=== PATIENT | male | born 1940 | race Caucasian/White ===

== ENCOUNTER 2017-05-09 11:03 | Emergency (ER) | payer MEDICARE ==
[~2017-05-09] VITALS: Ht 182.9 cm; Wt 68.2 kg
[~2017-05-09 11:03] MED LIST: ASPI81TA82 PO; ATOR40TA49 PO; BETH25TA PO; CLOP75 PO; FISH1000 PO; GLUCCAP PO; METO25 PO; OMEP20TA PO; PIRO-1 PO; VITATAB PO
[2017-05-09 11:05] VITALS: BP 147/78; PULSE 82; RESP 14; TEMP 98.4; O2SAT 96
[2017-05-09] MEDS ORDERED: MEGE20TA PO (12:48)
[2017-05-09] MEDS ORDERED: GALA8TAB PO (12:48)
[2017-05-09] MEDS ORDERED: OXYB5TAB8 PO (12:48)
[2017-05-09] MEDS ORDERED: VITA10002 PO (12:48)
[2017-05-09] MEDS ORDERED: PIRO20CA PO (12:59)
[2017-05-09] MEDS ORDERED: METO25TA3 PO (12:59)
[2017-05-09] MEDS ORDERED: OMEGCAP PO (12:59)
[2017-05-09] MEDS ORDERED: LIPI40TA PO (12:59)
[2017-05-09] MEDS ORDERED: BETH25TA2 PO (12:59)
[2017-05-09] MEDS ORDERED: PLAV75TA29 PO (12:59)
[2017-05-09] MEDS ORDERED: ASPI-516 CHEW (12:59)
[2017-05-09] MEDS ORDERED: GLUC500T4 PO (12:59)
[2017-05-09] MEDS ORDERED: OMEP20TA93 PO (12:59)
[2017-05-09] MEDS ORDERED: IBUPROFEN 600 MG TAB PO ONE (13:00)
--- NOTE | 2017-05-09 13:06 | PD ---
HPI Chief Complaint: Back/ Neck Pain or Injury Time Seen by Provider: 12:12 Travel History International Travel<30 days: No Contact w/Intl Traveler<30days: No Traveled to known affect area: No History of Present Illness HPI 76-year-old male presents to emergency Department with complaint of right hip pain 4 days. Pain radiates down his right leg. Denies injury or fall. Denies fevers, vomiting. Denies paresthesias, loss of sensation, decreased range of motion, decreased strength to the affected extremity. Denies change in ambulation. Rates pain 8/10. Describes Pain as a throbbing sensation. Has taken Aleve, used his neurostimulator, and a OTC pain patch for symptom management. Dr. Carter is primary care provider. No known allergies. Has no medical complaints. No other modifying factors or associated signs and symptoms. PFSH Past Medical History Hx Anticoagulant Therapy: Yes Arthritis: Yes Cancer: No Cardiac Catheterization: Yes Cardiovascular Problems: Yes High Cholesterol: Yes Coronary Artery Disease: Yes Diabetes: No Diminished Hearing: No Endocrine: No Gastrointestinal Disorders: Yes (CASTILLO'S ESOPHAGUS, GASTROPARESIS) GERD: Yes Genitourinary: Yes (ENLARGED PROSTATE) Hepatitis: No Hiatal Hernia: No Immune Disorder: No Musculoskeletal: Yes Neurologic: Yes (LEFT LEG TO FOOT NUMBNESS) Psychiatric: No Reproductive: No Respiratory: No Thyroid Disease: No Influenza Vaccination: Yes Past Surgical History Abdominal Surgery: Yes (APPY) AICD: No Appendectomy: Yes Body Medical Devices: LUMBAR HARDWARE, SPINAL CORD STIMULATOR 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 CD. STIMULATOR IMPL.) Oral Surgery: Yes (EXC. NECK CYST) Pacemaker: No Thoracic Surgery: No Tonsillectomy: Yes Other Surgery: Yes Social History Alcohol Use: Yes (glass of wine a day) Tobacco Use: No (QUIT ) Substance Use: No Allergies-Medications (Allergen,Severity, Reaction): Coded Allergies: No Known Allergies (Verified Adverse Reaction, Unknown, 05/09/17) Reported Meds & Prescriptions Reported Meds & Active Scripts Active Acyclovir 800 Mg Tab 800 Mg PO 5 TIMES A DAY 7 Days Reported Piroxicam 20 Mg Cap 20 Mg PO DAILY Omeprazole 20 Mg Tab 20 Mg PO DAILY [place]-3 Fish Oil/Vitamin (Fish Oil-Cholecalciferol) 1,000-1,000 Mg Cap 1 Cap PO DAILY Metoprolol Tartrate 25 Mg Tab 12.5 Mg PO BID Glucosamine-Chondroitin 500-400 Mg Tab 1 Tab PO DAILY Plavix (Clopidogrel Bisulfate) 75 Mg Tab 75 Mg PO DAILY Bethanechol 25 Mg Tab 25 Mg PO DAILY Lipitor (Atorvastatin Calcium) 40 Mg Tab 40 Mg PO HS Aspirin 81 Mg Chew 81 Mg CHEW DAILY Vitamin B-12 (Cyanocobalamin) 1,000 Mcg Tab 1,000 Mcg PO DAILY Megestrol (Megestrol Acetate) 20 Mg Tab 20 Mg PO DAILY Ditropan (Oxybutynin Chloride) 5 Mg Tab 5 Mg PO DAILY Galantamine (Galantamine Hydrobromide) 8 Mg Tab 16 Mg PO DAILY Review of Systems Except as stated in HPI: all other systems reviewed are Neg Physical Exam Narrative GENERAL: Well-nourished, well-developed elderly, male patient, in no acute distress; afebrile, nontoxic-appearing SKIN: Warm and dry. HEAD: Atraumatic. Normocephalic. EYES: Pupils equal and round. No scleral icterus. No injection or drainage. ENT: Mucosa pink and moist. Airway patent. NECK: Trachea midline. CARDIOVASCULAR: Regular rate and rhythm. No murmur appreciated. RESPIRATORY: No accessory muscle use. Lungs sounds clear and equal bilaterally. MUSCULOSKELETAL: Right hip with full range of motion; without erythema, edema, or ecchymosis; here are two red, blistered streaks noted to the area of pain that may be consistent with shingles; right hip with tenderness on abduction; tenderness on palpation to the lateral aspect; no obvious deformity; no leg length discrepancy. Right lower extremity is supple and non-tense with 2+ pedal pulse and sensory intact and without erythema or edema. NEUROLOGICAL: Awake and alert. Oriented 3. No obvious cranial nerve deficits. Motor grossly within normal limits. Normal speech. PSYCHIATRIC: Appropriate mood and affect; insight and judgment normal. Data Data Last Documented VS Vital Signs Date Time Temp Pulse Resp B/P (MAP) Pulse Ox O2 Delivery O2 Flow Rate FiO2 05/09/17 11:05 98.4 82 14 147/78 (101) 96 Orders Orders Hip, Uni(Ap&Lat) W Ap Pelvis (05/09/17 13:00) Ibuprofen (Motrin) (05/09/17 13:00) Ed Discharge Order (05/09/17 14:01) [facility] Medical Decision Making Medical Screen Exam Complete: Yes Emergency Medical Condition: Yes Medical Record Reviewed: Yes Differential Diagnosis Hip pain, arthritis, stress fracture, shingles Narrative Course 76-year-old male with right hip pain. Denies injury. On examination there are to read blistered streaks noted to the area of pain to the right hip. Suspecting shingles. The patient states he did use a [id number] pain patch and doesn't know if the skin change was caused by the patch. He reports history of shingles vaccination. The patient pain medication and he is requesting ibuprofen. Ibuprofen ordered. I will x-ray the hip to rule out acute findings. 1400: Left hip x-ray concludes: Hip and Pelvis X-Ray 05/09/17 1300 Signed Impressions: Service Date/Time: Tuesday, May 09, 2017 13:38 - CONCLUSION: Previous surgery, fusion and stimulator. Negative for fracture. Juan Mazariegos MD FACR X-ray report provided to the patient. Discussed shingles and antiviral medication. I will provide the patient with a prescription for acyclovir for suspected shingles. Patient has pain medication at home and says he doesn't need a prescription. Instructed patient to follow up with primary care provider. Patient verbalizes understanding and agreement with treatment plan. Patient is medically cleared and stable for discharge. Discussed reasons to return to the emergency department. Patient agrees with treatment plan. The patients vital signs are stable and the patient is stable for outpatient follow- up and treatment. Patient discharged home, stable and in no acute distress. Diagnosis Primary Impression: Right hip pain Referrals: Orthopedist Primary Care Physician Patient Instructions: General Instructions, Hip Pain (ED), Shingles (ED) Additional Instructions: Tylenol as directed and as instructed nothing of her pain Shingles is contagious Keep area covered with clothing to avoid spreading to others Wash hands frequently Take medications as prescribed Cold, wet compresses to the rash to help relieve itching and pain as needed Cool Bath to help relieve itching and pain as needed Follow-up with a primary care provider Return to the emergency department immediately with worsening of symptoms Med/Other Pt SpecificInfo: Prescription(s) given Scripts Acyclovir (Acyclovir) 800 Mg Tab 800 MG PO 5 TIMES A DAY for Mgmt Viral Infection for 7 Days, TAB 0 Refills Prov: Angelina Herrera 05/09/17 Disposition: 01 DISCHARGE HOME Condition: Stable Angelina Herrera May 09, 2017 13:06
[2017-05-09] MEDS ORDERED: ACYC800T PO (13:35)
--- NOTE | 2017-05-09 13:45 | RADRPT ---
EXAM DATE/TIME: 05/09/2017 13:38 [facility] COMPARISON: No previous studies available for comparison. INDICATIONS : Right hip pain, no trauma. MEDICAL HISTORY : Arthritis. SURGICAL HISTORY : Fusion, lumbar. Pain stimulator. SI joint fusion. ENCOUNTER: Initial ACUITY: 4 - 6 days PAIN SCORE: 9/10 LOCATION: Right lateral hip and into right leg. FINDINGS: Examination of the right hip was performed with AP Pelvis. The primary and secondary trabecular lane rajwinder of the femoral neck is intact. The hip joint is of normal width without significant sclerosis or bony hypertrophy. The acetabulum is grossly intact. Spinal stimulator planning on the left. Fusio n left SI joint. Transpedicular fusion L5-S1. CONCLUSION: Previous surgery, fusion and stimulator. Negative for fracture. Juan Mazariegos MD FACR on May 09, 2017 at 13:42 Board Certified Radiologist. This report was verified electronically.
== END 2017-05-09 14:21 | disposition home or self-care (01) ==
LOC: NEPD 11:03
DX: M25.551 Pain in right hip (principal); E78.00 Pure hypercholesterolemia, unspecified; K21.9 Gastro-esophageal reflux disease without esophagitis; K22.70 Barrett's esophagus without dysplasia; I25.10 Atherosclerotic heart disease of native coronary artery without angina pectoris; Z79.02 Long term (current) use of antithrombotics/antiplatelets; Z87.891 Personal history of nicotine dependence
CPT/HCPCS: 73502; 99283

== ENCOUNTER 2017-06-20 12:43 | Inpatient (IN) | payer MEDICARE ==
[2017-06-20] VITALS (7 sets, daily range): BP systolic 118–147; BP diastolic 60–70; PULSE 60–73; RESP 14–18; TEMP 97.5–98.6; O2SAT 94–97
[~2017-06-20] VITALS: Ht 182.9 cm; Wt 71.7 kg
[~2017-06-20 12:43] MED LIST changes: +ACYC800T PO; +ASPI-516 CHEW; -ASPI81TA82 PO; -ATOR40TA49 PO; -BETH25TA PO; +BETH25TA2 PO; -CLOP75 PO; -FISH1000 PO; +GALA8TAB PO; +GLUC500T4 PO; -GLUCCAP PO; +LIPI40TA PO; +MEGE20TA PO; -METO25 PO; +METO25TA3 PO; +OMEGCAP PO; -OMEP20TA PO; +OMEP20TA93 PO; +OXYB5TAB8 PO; -PIRO-1 PO; +PIRO20CA PO; +PLAV75TA29 PO; +VITA10002 PO; -VITATAB PO
[2017-06-20] MEDS ORDERED: CHOL100025 CHEW (13:07)
[2017-06-20] MEDS ORDERED: VITA500T83 PO (13:07)
[2017-06-20] MEDS ORDERED: IPRA0.06 EACH NARE (13:07)
[2017-06-20] MEDS ORDERED: MEMA1TAB2 PO (13:07)
[2017-06-20] MEDS ORDERED: ZINC50TA2 PO (13:07)
[2017-06-20] MEDS ORDERED: SODIUM CHLORIDE 0.9% FLUSH 10 ML FLUSH IVF PRN (13:15)
[2017-06-20] MEDS ORDERED: ASPIRIN 81 MG CHEW TAB PO ONE (13:15)
[2017-06-20 13:32] LABS: AUTOMATED NEUTROPHIL # 5.3 TH/MM3 (1.8-7.7); BASOPHIL # 0.1 TH/MM3 (0-0.2); BASOPHIL % 0.9 % (0.0-2.0); EOSINOPHIL # 0.4 TH/MM3 (0-0.4); EOSINOPHIL % 4.9 % (0.0-4.0); HEMATOCRIT 39.6 % (39.0-51.0); LYMPH % 20.6 % (9.0-44.0); LYMPHOCYTE # 1.7 TH/MM3 (1.0-4.8); MEAN CELL VOLUME 92.4 FL (80.0-100.0); MEAN CORPUSCULAR HEMOGLOBIN 32.7 PG (27.0-34.0); MEAN CORPUSCULAR HGB CONC 35.4 % (32.0-36.0); MEAN PLATELET VOLUME 11.1 FL (7.0-11.0); MONO % 8.5 % (0.0-8.0); MONOCYTE # 0.7 TH/MM3 (0-0.9); NEUT % 65.1 % (16.0-70.0); PLATELET COUNT 163 TH/MM3 (150-450); RED BLOOD COUNT 4.28 MIL/MM3 (4.50-5.90); RED CELL DISTRIBUTION WIDTH 13.5 % (11.6-17.2); WHITE BLOOD COUNT 8.2 TH/MM3 (4.0-11.0)
--- NOTE | 2017-06-20 13:32 | RADRPT ---
EXAM DATE/TIME: 06/20/2017 13:20 [facility] COMPARISON: No previous studies available for comparison. INDICATIONS : Chest pain and shortness of breath this morning. MEDICAL HISTORY : Arthritis. SURGICAL HISTORY : Coronary artery stent. Fusion, lumbar. Pain stimulator. SI joint fusion. ENCOUNTER: Initial ACUITY: 1 day PAIN SCORE: 10 LOCATION: Bilateral chest FINDINGS: A single view of the chest demonstrates the lungs to be symmetrically aerated without evidence of mas s, infiltrate or effusion. The cardiomediastinal contours are unremarkable. Osseous structures are intact. The patient is status post median sternotomy. Stimulator probes are projected over the mid to lower thoracic spine. CONCLUSION: No acute disease. Marin Westbrook MD on June 20, 2017 at 13:29 Board Certified Radiologist. This report was verified electronically.
[2017-06-20 13:44] LABS: PROTHROMBIN TIME - PATIENT 10.5 SEC (9.8-11.6)
[2017-06-20 13:49] LABS: ALT (GPT) 20 U/L (12-78)
[2017-06-20 14:02] LABS: ALBUMIN 3.8 GM/DL (3.4-5.0); ALKALINE PHOSPHATASE 56 U/L (45-117); AST (GOT) 16 U/L (15-37); BICARBONATE 22.8 MEQ/L (21.0-32.0); BLOOD UREA NITROGEN 18 MG/DL (7-18); CALCIUM 9.2 MG/DL (8.5-10.1); CHLORIDE 109 MEQ/L (98-107); CREATININE 1.22 MG/DL (0.60-1.30); GLOMERULAR FILTRATION RATE 57 ML/MIN (>89); GLUCOSE,RANDOM 98 MG/DL (74-106); SODIUM (NA) 141 MEQ/L (136-145); TOTAL BILIRUBIN ADULT 0.8 MG/DL (0.2-1.0); TOTAL PROTEIN 6.9 GM/DL (6.4-8.2); TROPONIN I LESS THAN 0.02 NG/ML (0.02-0.05)
--- NOTE | 2017-06-20 14:40 | PD ---
HPI Chief Complaint: Chest Pain Time Seen by Provider: 13:00 Travel History International Travel<30 days: No Contact w/Intl Traveler<30days: No Traveled to known affect area: No History of Present Illness HPI Patient is a 76-year-old male who comes in complaining of chest pain and shortness of breath. He says the pain came on while he was working out at the gym. He says this has been happening for the past few weeks, but today was a little bit longer. His called the folder and notcher who suggested he take nitro and come into the emergency department. He says the nitro has resolved his chest pain, but he still feels short of breath. He denies fever chills. He denies cough or cold symptoms. Currently he is comfortable. PFSH Past Medical History Hx Anticoagulant Therapy: Yes Alzheimer's Disease: Yes Arthritis: Yes Cancer: No Cardiac Catheterization: Yes Cardiovascular Problems: Yes High Cholesterol: Yes Coronary Artery Disease: Yes Diabetes: No Diminished Hearing: No Endocrine: No Gastrointestinal Disorders: Yes (CASTILLO'S ESOPHAGUS, GASTROPARESIS) GERD: Yes Genitourinary: Yes (ENLARGED PROSTATE) Hepatitis: No Hiatal Hernia: No Hypertension: Yes Immune Disorder: No Medical other: No Musculoskeletal: Yes Neurologic: Yes (LEFT LEG TO FOOT NUMBNESS) Psychiatric: No Reproductive: No Respiratory: No Thyroid Disease: No Tetanus Vaccination: < 5 Years Influenza Vaccination: Yes Past Surgical History Abdominal Surgery: Yes (APPY) AICD: No Appendectomy: Yes Body Medical Devices: LUMBAR HARDWARE, SPINAL CORD STIMULATOR 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 CD. STIMULATOR IMPL.) Oral Surgery: Yes (EXC. NECK MELANOMA) Pacemaker: No Thoracic Surgery: No Tonsillectomy: Yes Other Surgery: Yes Social History Alcohol Use: Yes (glass of wine a day) Tobacco Use: No (QUIT ) Substance Use: No Allergies-Medications (Allergen,Severity, Reaction): Coded Allergies: No Known Allergies (Verified Adverse Reaction, Unknown, 06/20/17) Reported Meds & Prescriptions Reported Meds & Active Scripts Active Reported Vitamin D3 (Cholecalciferol) 1,000 Unit Chew 1,000 Units CHEW DAILY Zinc Gluconate 50 Mg Tab 50 Mg PO DAILY Vitamin C ER (Ascorbic Acid) 500 Mg Hollie 500 Mg PO DAILY Ipratropium Nasal 0.06% [place] 1 [place] EACH NARE QID PRN Memantine 10 Mg Tab 10 Mg PO BID Omeprazole 20 Mg Tab 20 Mg PO DAILY [place]-3 Fish Oil/Vitamin (Fish Oil-Cholecalciferol) 1,000-1,000 Mg Cap 1 Cap PO DAILY Metoprolol Tartrate 25 Mg Tab 12.5 Mg PO BID Glucosamine-Chondroitin 500-400 Mg Tab 1 Tab PO DAILY Plavix (Clopidogrel Bisulfate) 75 Mg Tab 75 Mg PO DAILY Lipitor (Atorvastatin Calcium) 40 Mg Tab 40 Mg PO HS Aspirin 81 Mg Chew 81 Mg CHEW DAILY Vitamin B-12 (Cyanocobalamin) 1,000 Mcg Tab 1,000 Mcg PO DAILY Megestrol (Megestrol Acetate) 20 Mg Tab 20 Mg PO DAILY Ditropan (Oxybutynin Chloride) 5 Mg Tab 5 Mg PO DAILY Galantamine (Galantamine Hydrobromide) 8 Mg Tab 16 Mg PO DAILY Review of Systems Except as stated in HPI: all other systems reviewed are Neg General / Constitutional: No: Fever, Chills HENT: No: Headaches, Lightheadedness Cardiovascular: Positive: Chest Pain or Discomfort, Dyspnea on exertion Respiratory: Positive: Shortness of Breath Gastrointestinal: No: Nausea, Vomiting Musculoskeletal: No: Edema Skin: No Rash, No Change in Pigmentation Neurologic: No: Weakness, Dizziness Physical Exam Narrative GENERAL: Awake and alert, no acute distress. SKIN: Focused skin assessment warm/dry. No wounds or signs of infection. HEAD: Atraumatic. Normocephalic. EYES: Pupils equal and round. No scleral icterus. ENT: Mucous membranes pink and moist. NECK: Trachea midline. No JVD. CARDIOVASCULAR: Regular rate and rhythm. No murmur appreciated. RESPIRATORY: No accessory muscle use. Clear to auscultation. Breath sounds equal bilaterally. GASTROINTESTINAL: Abdomen soft, non-tender, nondistended. MUSCULOSKELETAL: No obvious deformities. No clubbing. No cyanosis. No edema. NEUROLOGICAL: Awake and alert. No obvious cranial nerve deficits. Motor grossly within normal limits. Normal speech. PSYCHIATRIC: Appropriate mood and affect; insight and judgment normal. Data Data Last Documented VS Vital Signs Date Time Temp Pulse Resp B/P (MAP) Pulse Ox O2 Delivery O2 Flow Rate FiO2 06/20/17 13:49 60 16 125/60 (81) 94 Room Air 06/20/17 12:58 98.6 Orders Orders B-Type Natriuretic Peptide (06/20/17 13:10) Ckmb (Isoenzyme) Profile (06/20/17 13:10) Complete Blood Count With Diff (06/20/17 13:10) Comprehensive Metabolic Panel (06/20/17 13:10) Prothrombin Time / Inr (Pt) (06/20/17 13:10) Act Partial Throm Time (Ptt) (06/20/17 13:10) Troponin I (06/20/17 13:10) Chest, Single Ap (06/20/17 13:10) Ecg Monitoring (06/20/17 13:10) Bilateral Bp Monitoring (06/20/17 13:10) Iv Access Insert/Monitor (06/20/17 13:10) Oximetry (06/20/17 13:10) Oxygen Administration (06/20/17 13:10) Aspirin Chew (Aspirin Chew) (06/20/17 13:15) Sodium Chloride 0.9% Flush (Ns Flush) (06/20/17 13:15) Electrocardiogram (06/20/17 ) Cardiac Catheterization (06/20/17 ) Admit Order (Ed Use Only) (06/20/17 ) Labs Laboratory Tests Test 06/20/17 13:15 White Blood Count 8.2 TH/MM3 Red Blood Count 4.28 MIL/MM3 Hemoglobin 14.0 GM/DL Hematocrit 39.6 % Mean Corpuscular Volume 92.4 FL Mean Corpuscular Hemoglobin 32.7 PG Mean Corpuscular Hemoglobin Concent 35.4 % Red Cell Distribution Width 13.5 % Platelet Count 163 TH/MM3 Mean Platelet Volume 11.1 FL Neutrophils (%) (Auto) 65.1 % Lymphocytes (%) (Auto) 20.6 % Monocytes (%) (Auto) 8.5 % Eosinophils (%) (Auto) 4.9 % Basophils (%) (Auto) 0.9 % Neutrophils # (Auto) 5.3 TH/MM3 Lymphocytes # (Auto) 1.7 TH/MM3 Monocytes # (Auto) 0.7 TH/MM3 Eosinophils # (Auto) 0.4 TH/MM3 Basophils # (Auto) 0.1 TH/MM3 CBC Comment DIFF FINAL Differential Comment Prothrombin Time 10.5 SEC Prothromb Time International Ratio 1.0 RATIO Activated Partial Thromboplast Time 24.4 SEC Blood Urea Nitrogen 18 MG/DL Creatinine 1.22 MG/DL Random Glucose 98 MG/DL Total Protein 6.9 GM/DL Albumin 3.8 GM/DL Calcium Level 9.2 MG/DL Alkaline Phosphatase 56 U/L Aspartate Amino Transf (AST/SGOT) 16 U/L Alanine Aminotransferase (ALT/SGPT) 20 U/L Total Bilirubin 0.8 MG/DL Sodium Level 141 MEQ/L Potassium Level 4.4 MEQ/L Chloride Level 109 MEQ/L Carbon Dioxide Level 22.8 MEQ/L Anion Gap 9 MEQ/L Estimat Glomerular Filtration Rate 57 ML/MIN Total Creatine Kinase 89 U/L Troponin I LESS THAN 0.02 NG/ML B-Type Natriuretic Peptide 51 PG/ML MDM Medical Decision Making Medical Screen Exam Complete: Yes Emergency Medical Condition: Yes Medical Record Reviewed: Yes Interpretation(s) ECG shows normal sinus rhythm at a rate of 80, no ST elevation or depression Differential Diagnosis ACS versus NSTEMI versus STEMI Narrative Course Patient is a 76-year-old male who comes in complaining of chest pain and shortness of breath that started while he was at the gym. Exam shows no acute abnormalities. IV established, labs sent, patient connected to the cotton wringer. Patient given aspirin. Labs show no acute abnormalities. Chest x-ray shows no acute abnormalities. Last 24 hours Impressions Chest X-Ray 06/20/17 1310 Signed Impressions: Service Date/Time: Tuesday, June 20, 2017 13:20 - CONCLUSION: No acute disease. Marin Westbrook MD I spoke with Dr. Walsh, his folder and notcher would like to take the patient for cath. Patient will be admitted for further management. Diagnosis Primary Impression: Chest pain Qualified Codes: R07.9 - Chest pain, unspecified Admitting Information Admitting Physician Requests: Admit Priti Schmitz MD Jun 20, 2017 14:40
[2017-06-20] MEDS ORDERED: ACETAMINOPHEN 325 MG TAB PO PRN (15:00)
[2017-06-20] MEDS ORDERED: ONDANSETRON HCL 4 MG/2 ML VIAL IVP PRN (15:00)
[2017-06-20] MEDS ORDERED: SODIUM CHLORIDE 0.9% FLUSH 10 ML FLUSH IV FLUSH PRN (15:00)
[2017-06-20] MEDS ORDERED: MAGNESIUM HYDROXIDE SUSP 30 ML CUP PO PRN (15:00)
[2017-06-20] MEDS ORDERED: NALOXONE HCL 0.4 MG/ML AMP IV PUSH PRN (15:00)
[2017-06-20] MEDS ORDERED: MIDAZOLAM HCL 2 MG/2 ML VIAL ONE (15:18)
[2017-06-20] MEDS ORDERED: HEPARIN-NS/PF INJ 1,000 ML ONE (15:18)
[2017-06-20] MEDS ORDERED: HEPARIN SODIUM - IV 10,000 UNITS/10 ML VIAL ONE (15:36)
[2017-06-20] MEDS ORDERED: NITROGLYCERIN INJ 5 ML ONE (15:36)
[2017-06-20] MEDS ORDERED: ATROPINE SULFATE 1 MG/ML VIAL IV PUSH PRN (15:45)
[2017-06-20] MEDS ORDERED: LORazepam 2 MG/ML VIAL IV PUSH PRN (15:45)
[2017-06-20] MEDS ORDERED: MISC INFORMATION XX ONE (15:45)
[2017-06-20] MEDS ORDERED: SODIUM CHLOR 0.9% 250 ML INJ 250 ML IV PRN (15:45)
[2017-06-20] MEDS ORDERED: LIDOCAINE HCL 1% 50 ML VIAL INFIL PRN (15:45)
[2017-06-20] MEDS ORDERED: METOCLOPRAMIDE HCL 10 MG/2 ML VIAL IV PUSH PRN (15:45)
--- NOTE | 2017-06-20 15:46 | CATHPROC ---
Call [place] HIS Report Study Information Study Number Admission Scheduled Start Study Start [id number] Jun 20 2017 12:43PM 06/20/2017 Jun 20 2017 2:53PM [place] [facility] Cardiac Catheterization Admit Source Facility Department Emergency department [facility] - [facility] Physician and Clinical Staff Initial Jaime Patterson Refueler Kaylan Arcos,RN Recorder Rickey Ravi,RT(R) Scrub Ed Hewitt,RT(R) Procedures Performed Procedure Location (Site) Vessel Name Coronary Angiograms LCA Left Coronary Coronary Angiograms RCA Right Coronary L Heart Cath Equipment Time Delivery Coordinator Description Size Mfg Part Number Used/Scraped TRANSDUCER, TRUWAVE [id number] 15:19 LAM WARD * Used W/STOCKCOCK *[id number] 15:19 MEDLINE INDUSTRIES PACK, CCL CUSTOM * Used *[id number] 15:19 [employer] PACER PEN, SKIN DUAL W/ RULER * Used *[id number] 15:21 MEDTRONIC JL 3.5 DXTERITY CATHETER FR 5 Used *[id number] 15:21 MEDTRONIC JR 4.0 DXTERITY CATHETER FR 5 Used *[id number] 15:19 [employer]OVE [employer] MEDICAL WIRE, 3MMJ .035 180CM 180CM Used *[id number] 15:19 NAMIC MANIFOLD, 4 PORT * Used *[id number] 15:19 NYCOMED OMNIPAQUE, 350 MG, 150ML 150ML [id number] Used [id number] 15:19 JAVIER MEDICAL BLANKET,WARM AIR CCL * Used *[id number] 15:19 TERUMO MEDICAL SHEATH, FR5 TERUMO (10CM) FR 5 Used *[id number] History: Allergies Allergy Reaction No Known Allergies History: Risk Factors Family History of Hypertension Dyslipidemia Previous PA Previous Heart Failure Premature CAD Yes Yes No Yes No Prior Valve Prior PCI Prior PCIDate Prior CABG Surgery No Yes 03/06/2015 No Cerebrovascular Peripheral Artery Chronic Lung On Dialysis Diabetes Disease Disease Disease No No No No No History: Stress Tests Stress or Imaging Studies Performed No History: Other Current Smoker Method Quit Packs a Day Years Used Pack Years No Cigarettes 37 Years Ago 1 30 30 Labs Hgb (g/dl) Hct (%) WBC (l/cumm) Platelets (thousands) 11.60-17.00 35.00-51.00 4.00-11.00 150.00-450.00 14.0 39.6 8.2 163 Glucose (mg/dl) BUN (mg/dl) Creatinine (mg/dl) BUN:Creatinine (1:x) 74.00-106.00 7.00-18.00 0.50-1.30 10.00-20.00 98 18 1.2 15 Na (meq/l) K (meq/l) 136.00-145.00 3.50-5.10 141 4.4 INR (PTT:PT) 0.90-1.10 1 Troponin I (ng/ml) CPK-MB (ng/ML) 0.02-0.05 0.50-3.60 0.02 Not Drawn Medication Medication Total Dose (Bolus/Oral) Medication Total Dosage/Unit 1% XYLOCAINE 20 mL FENTANYL 25 mcg VERSED 1 mg Medications (Bolus/Oral) Medication Time Given Dosage/Unit Administered By Reason VERSED 06/20/2017 3:30:45 PM 1 mg Kaylan Arcos 1 mg VERSED given in lab by Kaylan Arcos RN via Peripheral IV. Ordered by Jaime Walsh. 1% XYLOCAINE 06/20/2017 3:31:07 PM 20 mL Jaime Walsh 20 mL 1% XYLOCAINE given in lab by Jaime Walsh in Right Groin via Subcutaneous. Ordered by Jaime Walsh. FENTANYL 06/20/2017 3:31:59 PM 25 mcg Kaylan Arcos 25 mcg FENTANYL given in lab by Kaylan Arcos, ALFREDO via Peripheral IV. Ordered by Jaime Walsh. Medication (Drip) Medication Time Given Dosage/Unit Concentration/Unit Diluent (ml) Soluti on IV Solutions 06/20/2017 3:12:02 PM 0 mL (IV) 500 NaCl .9 IV Solutions given in lab by Jaime Walsh in Left Antecubital via Peripheral IV. Pump/Drip Flow = 2 0 ml/hr using NaCl .9. Initial Case Assessment Cardiovascular HR Rhythm NIBP Chest Pain 61 sr 132/79 0 Edema Present Skin color Skin None Normal Warm Dry Circulatory - Right Pulses Dorsalis Pedis Femoral 3 3 Scale (0,1,2,3,4,d) Circulatory - Left Pulses Dorsalis Pedis Femoral 3 3 Scale (0,1,2,3,4,d) Neurological State Oriented to time-place- Alert Moves all extremities person Respiration - General Respiration Rate SpO2 (%) O2 (lpm) (B/min) 18 96 0 Final Case Assessment Cardiovascular HR Rhythm NIBP Chest Pain 61 sr 126/71 0 Edema Present Skin color Skin None Normal Warm Dry Circulatory - Right Pulses Dorsalis Pedis Femoral 3 3 Scale (0,1,2,3,4,d) Circulatory - Left Pulses Dorsalis Pedis Femoral 3 3 Scale (0,1,2,3,4,d) Neurological State Oriented to time-place- Alert Moves all extremities person Respiration - General Respiration Rate SpO2 (%) O2 (lpm) (B/min) 18 95 0 Chronological Log Time Study Chronological Log 15:02:20 Patient arrived via Bed. 15:02:21 Patient Name, D.O.B, / Armband Verified By R.N. 15:02:22 Consent signed by the physician and the patient and verified by the [facility] staff. 15:02:23 Pre-op and post- op instructions given; patient acknowledges understanding of instructions. 15:02:28 Verbal Stimulation=2 Physical Stimulation=2 Airway=2 Respiration=2 TOTAL=8. (0=absent, 1=li mited, 2=present) 15:02:40 Presedation assessment performed by [facility] RN. 15:02:44 Patient has been NPO for More than 6Hrs. Vitals capture started with the following parameters, Patient=Adult, Interval=5 min, Initial Pr xaarau=631 mmHg, 15:10:44 Deflation Rate=5 mmHg, Cuff placed on Right Arm 15:11:15 HR=70 bpm, LJSU=473/79 mmhg, SpO2=99.0 %, Resp=11 B/min, Santiago=2 15:11:34 Skin Breakdown-briuise present on nose. 15:11:51 Patient Warmer Placed on the Table. 15:11:53 A # 20 IV was noted in the Antecubital (left). Grade = 0 IV Solutions given in lab by Jaime Walsh in Left Antecubital via Peripheral IV. Pump/Drip Fl ow = 20 ml/hr using NaCl 15:12:02 .9. 15:12:15 Reference ECG taken 15:12:52 History and physical on the chart or being dictated. Assessment: Initial Case, HR=61 BPM, Rhythm=sr, SNFL=608/79 mmhg, Chest Pain=0, Edema=None, Col or=Normal, Skin = Warm, Dry Right Pulses: Erik Ped=3, Femoral=3 15:12:54 Left Pulses: Erik Ped=3, Femoral=3 Neurological: State=Alert, Ox3, [place] Respiration: Resp=18 B/min, SpO2=96 %, O2=0 lpm 15:13:19 Bilateral groins prepped with 2% chlorhexidine, and draped after a 3 minute waiting time. 15:16:18 HR=60 bpm, RBXV=826/71 mmhg, SpO2=97.0 %, Resp=17 B/min, Santiago=2 15:17:53 MD paged 15:18:04 Pressure channel 1 zeroed. 15:21:20 HR=61 bpm, SNAJ=522/72 mmhg, SpO2=97.0 %, Resp=14 B/min, Santiago=2 15:26:19 HR=60 bpm, UOYN=478/68 mmhg, SpO2=97.0 %, Resp=7 B/min, Santiago=2 15:27:38 MD arrived. Time Out. Correct patient, correct procedure, correct physician, power injector not loaded with contrast with surgical 15:30:09 team present. Time Out Concurred by MD and individual staff in procedure. Not loaded at this ti me. 15:30:41 Case Start 15:30:42 Presedation re-assessment performed by [facility] RN. 15:30:45 1 mg VERSED given in lab by Kaylan Arcos, RN via Peripheral IV. Ordered by Sergey Walsh 15:31:07 20 mL 1% XYLOCAINE given in lab by Jaime Walsh in Right Groin via Subcutaneous. Ordered by Jaime Walsh. 15:31:14 HR=61 bpm, QETF=902/87 mmhg, SpO2=96.0 %, Resp=17 B/min, Santiago=2 15:31:59 25 mcg FENTANYL given in lab by Kaylan Arcos, RN via Peripheral IV. Ordered by [facility] kareem Walsh. 15:32:13 Access site was Right Femoral Artery. 15:32:17 A SHEATH, FR5 TERUMO (10CM) FR 5 was advanced into the Fem Art (right) using the Percutaneo us technique. A JL 3.5 DXTERITY CATHETER FR 5 was advanced over a wire. OMNIPAQUE, 350 MG, 150ML 150ML was us ed for 15:32:27 injections. Recorded Pressure: Ao, HR=61, Condition=Condition 1 15:34:03 (Aorta) Ao 146/50/90 15:34:11 The LCA was injected and visualized at various angles. OMNIPAQUE, 350 MG, 150ML 150ML used . 15:36:21 HR=62 bpm, LFMY=645/69 mmhg, SpO2=94.0 %, Resp=10 B/min, Santiago=2 15:36:58 Catheter was removed A JR 4.0 DXTERITY CATHETER FR 5 was advanced over a wire. OMNIPAQUE, 350 MG, 150ML 150ML was us ed for 15:37:00 injections. 15:37:04 The RCA was injected and visualized at various angles. OMNIPAQUE, 350 MG, 150ML 150ML used . 15:38:09 Catheter was removed 15:41:01 Case End Assessment: Final Case, HR=61 BPM, Rhythm=sr, WOZC=349/71 mmhg, Chest Pain=0, Edema=None, Color =Normal, Skin = Warm, Dry Right Pulses: Erik Ped=3, Femoral=3 15:41:05 Left Pulses: Erik Ped=3, Femoral=3 Neurological: State=Alert, Ox3, [place] Respiration: Resp=18 B/min, SpO2=95 %, O2=0 lpm 15:41:18 HR=60 bpm, ODWD=315/71 mmhg, SpO2=93.0 %, Resp=14 B/min, Santiago=2 15:41:40 Catheter(s) removed without difficulty 15:41:41 Sheath(s) left in place, will be removed in Holding Area 15:41:44 Sterile dressing applied to site 15:41:46 No case complications noted. 15:41:48 Cine recording checked. 15:41:51 Bedside Report will be given. 15:41:53 Contrast Scanned 15:41:59 A Left Heart Cath was performed. 15:45:40 Patient moved to stretcher 15:45:45 Vitals capture stopped. End Study - Contrast Media Used In Study Contrast Total Opened (mL) Total Used (mL) Total Wasted (mL) Omnipaque 25 25 0 End Study - Maximum Contrast Load Max Contrast Load (mL) 291.7 End Study - Radiation Exposure Fluoro Time (minutes) 1.7 End Study - Patient Disposition Complications Transferred To No Telemetry Bed
[2017-06-20] MEDS ORDERED: BACITRACIN OINT 0.9 GM PKT TOP ONE (16:00)
--- NOTE | 2017-06-20 16:10 | MB ---
cc: YAZMIN CHRISTY DATE OF CONSULTATION 06/20/2017 INDICATION Chest pain. HISTORY OF PRESENT ILLNESS This 76-year-old gentleman who states that he was in his usual state of health up until early this morning when he developed substernal chest pain associated with shortness of breath. The symptoms were rather prolonged; they were exertional. 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 He took a sublingual nitroglycerin with relief of the chest pain but continued to have progressive shortness of breath. He called our office and was referred to the emergency department. Upon arrival to the emergency department he is chest pain-free. He states he has been having somewhat provokable symptoms with exertion lately on several occasions. PAST MEDICAL HISTORY 1. Coronary artery disease. Prior percutaneous intervention to the right coronary and left circumflex coronary artery. 2. Appendectomy. 3. Lumbar fusion. 4. Melanoma of the neck. 5. Atrial myxoma. ALLERGIES No known drug allergies. MEDICATIONS 1. Omeprazole. 2. [place] 3. 3. Metoprolol. 4. Glucosamine. 5. Plavix. 6. Lipitor. 7. Aspirin. 8. Vitamins. 9. Ditropan. REVIEW OF SYSTEMS A 12-point review or systems was performed. Negative unless otherwise noted in the History of Present Illness. PHYSICAL EXAMINATION VITAL SIGNS: Temperature is 97, heart rate 60, blood pressure 125/60 mmHg. GENERAL: Alert and oriented x3, in no acute distress. HEENT: Exam shows pupils reactive to light and accommodation. Extraocular movements are intact. NECK: No elevation in venous distension. No thyromegaly. No lymphadenopathy. No carotid bruits. LUNGS: Clear to auscultation bilaterally. CARDIOVASCULAR EXAM: Regular rate and rhythm without murmurs, rubs or gallops. ABDOMEN: Nontender, nondistended. Good bowel sounds. No hepatosplenomegaly. EXTREMITIES: No clubbing, cyanosis or edema. Good peripheral pulses. NEUROLOGIC: Cranial nerves intact. Motor and sensory grossly intact. LABORATORY DATA WBC 8.2, hemoglobin 14.0, platelet count is 163. INR is 1. Sodium 141, potassium 4.4, BUN is 18, creatinine 1.22. Troponins negative. ASSESSMENT 1. Unstable angina. 2. History of coronary artery disease. PLAN The patient's symptoms are fairly suggestive with exertional-related chest pain relieved with nitroglycerin and prolonged shortness of breath with the assessed risks, benefits and alternatives of several options including stress test or heart catheterization. Given his prior history and recurrent symptoms, he elected to proceed with diagnostic angiography. He is n.p.o. and we will proceed with cardiac catheterization today. MD ALEISHA Garces/AMAYA /3:45 PM /3:58 PM
[2017-06-20] MEDS ORDERED: IOHEXOL 350 MG/ML 50 ML BTL (for Cath Lab) OTHER ONE (17:07)
--- NOTE | 2017-06-20 18:10 | MA ---
cc: YAZMIN CHRISTY DATE 06/20/2017 INDICATION Unstable angina. PROCEDURE PERFORMED 1. Coronary angiography. 2. Fluoroscopy with interpretation. METHOD The risks, benefits and alternatives were discussed with the patient. The patient understood and consented to the procedure. PROCEDURE The patient was brought into the catheterization lab and placed on the catheterization table. The right groin was prepped and draped in a sterile fashion. The right groin was anesthetized with 2% Lidocaine. The right common femoral artery was cannulated and a 5 Hungarian 11 cm sheath was placed without difficulty. CORONARY ANGIOGRAPHY 1. The left main coronary artery is angiographically normal. 2. Left anterior descending coronary has mild luminal irregularities. 3. Left circumflex coronary has a stent present just prior to the bifurcation obtuse marginal branch and is widely patent. There is 20-30% stenosis just prior to the stent. 4. Right coronary artery has a stent present in the proximal to mid segment and is dominant. The right coronary artery widely patent. Stent is widely patent. CONCLUSION Widely patent right coronary and left circumflex coronary stents. PLAN Symptoms are somewhat suggestive although there is no significant angiographic disease. We will plan on optimizing medical management ____ a long-acting nitrate could be coronary spasm. If he has an recurrent symptoms would have low threshold for CTA or VQ scan to rule out pulmonary embolism. MD ALEISHA Garces/SAW /3:48 PM /5:46 PM
[2017-06-20] MEDS: SODIUM CHLORIDE 0.9% FLUSH 10 ML FLUSH IV FLUSH SCH (21:00)
[2017-06-21] VITALS (8 sets, daily range): BP systolic 88–115; BP diastolic 50–66; PULSE 66–95; RESP 18; TEMP 97.4–98; O2SAT 92–94
[2017-06-21] MEDS: ISOSORBIDE MONONITRATE 60 MG TAB PO SCH ×2 (06:25→09:35)
[2017-06-21 07:07] LABS: ALBUMIN 3.3 GM/DL (3.4-5.0); AST (GOT) 11 U/L (15-37); BLOOD UREA NITROGEN 18 MG/DL (7-18); CALCIUM 8.6 MG/DL (8.5-10.1); CHLORIDE 111 MEQ/L (98-107); CREATININE 1.09 MG/DL (0.60-1.30); GLOMERULAR FILTRATION RATE 65 ML/MIN (>89); GLUCOSE,RANDOM 91 MG/DL (74-106); SODIUM (NA) 144 MEQ/L (136-145)
[2017-06-21 07:17] LABS: ALKALINE PHOSPHATASE 42 U/L (45-117); ALT (GPT) 17 U/L (12-78); TOTAL BILIRUBIN ADULT 0.9 MG/DL (0.2-1.0); TOTAL PROTEIN 6.1 GM/DL (6.4-8.2)
--- NOTE | 2017-06-21 07:40 | PD.CARD.PN ---
Subjective Subjective Remarks No further chest pain, shortness breath, or palpitations. Telemetry unremarkable overnight. No issues with right groin access site. Objective Medications Current Medications Medications (Trade) Dose Ordered Sig/Willie Route Start Time Stop Time Status Last Admin (NS Flush) 2 ml UNSCH PRN IV FLUSH 06/20/17 15:00 (NS Flush) 2 ml BID IV FLUSH 06/20/17 21:00 06/20/17 21:00 (Tylenol) 650 mg Q4H PRN PO 06/20/17 15:00 (Zofran Inj) 4 mg Q6H PRN IVP 06/20/17 15:00 (Narcan Inj) 0.4 mg UNSCH PRN IV PUSH 06/20/17 15:00 (Milk Of Magnesia Liq) 30 ml Q12H PRN PO 06/20/17 15:00 (Ativan Inj) 0.5 mg UNSCH PRN IV PUSH 06/20/17 15:45 06/21/17 15:44 (Atropine Inj) 0.5 mg UNSCH PRN IV PUSH 06/20/17 15:45 Sodium Chloride 250 ml @ 500 mls/hr ONCE PRN IV 06/20/17 15:45 06/21/17 15:44 (Reglan Inj) 10 mg Q4H PRN IV PUSH 06/20/17 15:45 (Xylocaine 1% Inj (50 ml)) 10 ml UNSCH PRN INFIL 06/20/17 15:45 06/21/17 15:44 (Imdur) 60 mg DAILY@07 PO 06/20/17 16:15 06/21/17 06:25 Vital Signs / I&O Vital Signs Date Time Temp Pulse Resp B/P (MAP) Pulse Ox O2 Delivery O2 Flow Rate FiO2 06/21/17 06:00 68 06/21/17 05:00 68 06/21/17 04:00 68 06/21/17 04:00 98.0 95 18 112/66 (81) 92 06/21/17 03:00 66 06/21/17 02:00 66 06/21/17 01:00 66 06/21/17 00:00 66 06/21/17 00:00 97.4 66 18 88/50 (63) 94 06/20/17 23:00 64 06/20/17 22:00 62 06/20/17 21:00 66 06/20/17 20:45 98.1 68 18 124/68 (86) 95 06/20/17 16:28 94 Room Air 06/20/17 15:11 06/20/17 13:49 60 16 125/60 (81) 94 Room Air 06/20/17 12:58 98.6 69 14 147/70 (95) 97 06/20/17 12:46 97.5 73 18 118/68 (85) 96 Room Air I/O 06/20/17 06/20/17 06/20/17 06/21/17 06/21/17 06/21/17 07:00 15:00 23:00 07:00 15:00 23:00 Intake Total 240 ml Output Total 200 ml Balance 40 ml Intake Oral 240 ml Output Urine Total 200 ml # Voids 2 # Bowel Movements 0 Physical Exam GENERAL: Well-developed well-nourished. In no acute distress. NECK: No carotid bruits. No JVD. CARDIOVASCULAR: Regular rate and rhythm. No murmur appreciated. Right groin access site with no ecchymosis, tenderness, or swelling. RESPIRATORY: No accessory muscle use. Clear to auscultation. Breath sounds equal bilaterally. MUSCULOSKELETAL: No clubbing or cyanosis. No edema. NEUROLOGICAL: Awake and alert. Normal speech. Laboratory Laboratory Tests Test 06/20/17 13:15 06/21/17 05:57 White Blood Count 8.2 TH/MM3 Red Blood Count 4.28 MIL/MM3 Hemoglobin 14.0 GM/DL Hematocrit 39.6 % Mean Corpuscular Volume 92.4 FL Mean Corpuscular Hemoglobin 32.7 PG Mean Corpuscular Hemoglobin Concent 35.4 % Red Cell Distribution Width 13.5 % Platelet Count 163 TH/MM3 Mean Platelet Volume 11.1 FL Neutrophils (%) (Auto) 65.1 % Lymphocytes (%) (Auto) 20.6 % Monocytes (%) (Auto) 8.5 % Eosinophils (%) (Auto) 4.9 % Basophils (%) (Auto) 0.9 % Neutrophils # (Auto) 5.3 TH/MM3 Lymphocytes # (Auto) 1.7 TH/MM3 Monocytes # (Auto) 0.7 TH/MM3 Eosinophils # (Auto) 0.4 TH/MM3 Basophils # (Auto) 0.1 TH/MM3 CBC Comment DIFF FINAL Differential Comment Prothrombin Time 10.5 SEC Prothromb Time International Ratio 1.0 RATIO Activated Partial Thromboplast Time 24.4 SEC Blood Urea Nitrogen 18 MG/DL 18 MG/DL Creatinine 1.22 MG/DL 1.09 MG/DL Random Glucose 98 MG/DL 91 MG/DL Total Protein 6.9 GM/DL 6.1 GM/DL Albumin 3.8 GM/DL 3.3 GM/DL Calcium Level 9.2 MG/DL 8.6 MG/DL Alkaline Phosphatase 56 U/L 42 U/L Aspartate Amino Transf (AST/SGOT) 16 U/L 11 U/L Alanine Aminotransferase (ALT/SGPT) 20 U/L 17 U/L Total Bilirubin 0.8 MG/DL 0.9 MG/DL Sodium Level 141 MEQ/L 144 MEQ/L Potassium Level 4.4 MEQ/L 3.6 MEQ/L Chloride Level 109 MEQ/L 111 MEQ/L Carbon Dioxide Level 22.8 MEQ/L 23.0 MEQ/L Anion Gap 9 MEQ/L 10 MEQ/L Estimat Glomerular Filtration Rate 57 ML/MIN 65 ML/MIN Total Creatine Kinase 89 U/L Troponin I LESS THAN 0.02 NG/ML B-Type Natriuretic Peptide 51 PG/ML Imaging Last 24 hours Impressions Chest X-Ray 06/20/17 1310 Signed Impressions: Service Date/Time: Tuesday, June 20, 2017 13:20 - CONCLUSION: No acute disease. Marin Westbrook MD Assessment and Plan Assessment and Plan 76-year-old male with a past medical history of CAD with prior PCI to the right coronary and left circumflex who presented with exertional chest pain and progressive shortness of breath. Chest pain with history of CAD: Cardiac catheterization 06/20/17 showed widely patent stents and otherwise angiographically normal coronaries. Optimize medical management. Imdur added. Continue aspirin, statin, Plavix, beta tesfaye. Román Aguirre Jun 21, 2017 07:40
[2017-06-21] MEDS ORDERED: PILL SPLITTER OTHER PRN (07:45)
--- NOTE | 2017-06-21 08:29 | HHI.HP ---
HPI Service [facility] Hospitalists Primary Care Physician Arsenio Arcos MD Admission Diagnosis Chest Pain Chief Complaint: Chest pain Travel History International Travel<30 Days: No Contact w/Intl Traveler <30 Da: No Traveled to Known Affected Are: No History of Present Illness Mr Flores is a pleasant 76 y/o male with CAD s/p C in 2014, HTN, Hyperlipidemia , cognitive impairment, and GERD who presented to the ED at [facility] on 06/20/17 with complaints of chest pain and shortness of breath. He reported that the pain began while he was working out at the gym. He says this has been happening for the past few weeks, but it lasted a bit longer on the day of admission. His called the tube splicer who suggested he take nitro and come into the ED. He reported that the nitro resolved his chest pain, but he still felt short of breath. His CE in the ED were negative and no new EKG changes. Pt was seen by Dr. Walsh in the ED and taken for cardiac catheterization. His LHC revealed widely patent RCA and left circumflex coronary artery stents. Pt was started on Imdur 60mg po daily. His telemetry has not revealed any cardiac dysrhythmias. He denies any further chest pain or SOB. He denies any palpitations, dizziness, weakness, nausea/vomiting. Review of Systems Constitutional: DENIES: Fever, Chills Eyes: DENIES: Vision loss Ears, nose, mouth, throat: DENIES: Hearing loss Respiratory: COMPLAINS OF: Shortness of breath, DENIES: Cough Cardiovascular: COMPLAINS OF: Chest pain, DENIES: Dyspnea on Exertion, Lower Extremity Edema Gastrointestinal: DENIES: Abdominal pain, Constipation, Diarrhea, Nausea, Vomiting Genitourinary: DENIES: Hematuria, Dysuria Musculoskeletal: DENIES: Neck pain Integumentary: DENIES: Rash Neurologic: DENIES: Headache Psychiatric: DENIES: Confusion Past Family Social History Past Medical History CAD with hx of [place] HTN Hyperlipidemia CKD, stage 3 Cognitive impairment GERD Lumbar radiculopathy Hx of malignant melanoma Past Surgical History [facility] 06/20/2017 --> widely patent RCA and left circumflex coronary artery stents [facility] 02/2015 --> acute thrombotic occlusion of the proximal RCA s/p DAGO placement to the proximal RCA, severe branch vessel obtuse marginal disease Appendectomy Arthrodesis of left SI joint Cataract surgery Removal of malignant melanoma from neck Hemilaminectomy Spinal cord stimulator implant Lumbar fusion Atrial myxoma removal in 1983 TURP Shoulder surgery Reported Medications Vitamin D3 1,000 Units CHEW DAILY Zinc Gluconate 50 Mg PO DAILY Vitamin C ER 500 Mg PO DAILY Ipratropium Nasal 0.06% 1 [place] EACH NARE QID PRN Memantine 10 Mg PO BID Omeprazole 20 Mg PO DAILY [place]-3 Fish Oil/Vitamin1,000-1,000 Mg Cap 1 Cap PO DAILY Metoprolol Tartrate 12.5 Mg PO BID Glucosamine-Chondroitin 500-400 Mg 1 Tab PO DAILY Plavix 75 Mg PO DAILY Lipitor 40 Mg PO HS Aspirin 81 Mg CHEW DAILY Vitamin B-12 1,000 Mcg PO DAILY Megestrol 20 Mg PO DAILY Ditropan 5 Mg PO DAILY Galantamine 16 Mg PO DAILY Allergies: Coded Allergies: No Known Allergies (Verified Allergy, Unknown, 06/20/17) Family History Noncontributory Social History Hx of tobacco use Social alcohol use Physical Exam Vital Signs Vital Signs Date Time Temp Pulse Resp B/P (MAP) Pulse Ox O2 Delivery O2 Flow Rate FiO2 06/21/17 06:00 68 06/21/17 05:00 68 06/21/17 04:00 68 06/21/17 04:00 98.0 95 18 112/66 (81) 92 06/21/17 03:00 66 06/21/17 02:00 66 06/21/17 01:00 66 06/21/17 00:00 66 06/21/17 00:00 97.4 66 18 88/50 (63) 94 06/20/17 23:00 64 06/20/17 22:00 62 06/20/17 21:00 66 06/20/17 20:45 98.1 68 18 124/68 (86) 95 06/20/17 16:28 94 Room Air 06/20/17 15:11 06/20/17 13:49 60 16 125/60 (81) 94 Room Air 06/20/17 12:58 98.6 69 14 147/70 (95) 97 06/20/17 12:46 97.5 73 18 118/68 (85) 96 Room Air Physical Exam GENERAL: This is a well-nourished, well-developed patient, in no apparent distress. HEENT: Atraumatic. Normocephalic. No temporal or scalp tenderness.No scleral icterus. Airway patent. NECK: Trachea midline, supple, nontender. CARDIO: Regular. RESP: CTA bilaterally. No wheezes, rales, or rhonchi. ABD: +BS, soft, non-tender, nondistended. EXT: Extremities without clubbing, cyanosis, or edema. NEURO: Awake and alert. Motor and sensory grossly within normal limits. Normal speech. Laboratory Laboratory Tests Test 06/20/17 13:15 06/21/17 05:57 White Blood Count 8.2 Red Blood Count 4.28 Hemoglobin 14.0 Hematocrit 39.6 Mean Corpuscular Volume 92.4 Mean Corpuscular Hemoglobin 32.7 Mean Corpuscular Hemoglobin Concent 35.4 Red Cell Distribution Width 13.5 Platelet Count 163 Mean Platelet Volume 11.1 Neutrophils (%) (Auto) 65.1 Lymphocytes (%) (Auto) 20.6 Monocytes (%) (Auto) 8.5 Eosinophils (%) (Auto) 4.9 Basophils (%) (Auto) 0.9 Neutrophils # (Auto) 5.3 Lymphocytes # (Auto) 1.7 Monocytes # (Auto) 0.7 Eosinophils # (Auto) 0.4 Basophils # (Auto) 0.1 CBC Comment DIFF FINAL Differential Comment Prothrombin Time 10.5 Prothromb Time International Ratio 1.0 Activated Partial Thromboplast Time 24.4 Blood Urea Nitrogen 18 18 Creatinine 1.22 1.09 Random Glucose 98 91 Total Protein 6.9 6.1 Albumin 3.8 3.3 Calcium Level 9.2 8.6 Alkaline Phosphatase 56 42 Aspartate Amino Transf (AST/SGOT) 16 11 Alanine Aminotransferase (ALT/SGPT) 20 17 Total Bilirubin 0.8 0.9 Sodium Level 141 144 Potassium Level 4.4 3.6 Chloride Level 109 111 Carbon Dioxide Level 22.8 23.0 Anion Gap 9 10 Estimat Glomerular Filtration Rate 57 65 Total Creatine Kinase 89 Troponin I LESS THAN 0.02 B-Type Natriuretic Peptide 51 Result Diagram: 06/20/17 1315 06/21/17 0557 Imaging Last Impressions Chest X-Ray 06/20/17 1310 Signed Impressions: Service Date/Time: Tuesday, June 20, 2017 13:20 - CONCLUSION: No acute disease. MD Gaurang Fair VTE Risk Assessment Caprini VTE Risk Assessment: Mod/High Risk (score >= 2) Caprini Risk Assessment Model Point Value = 1 Point Value = 2 Point Value = 3 Point Value = 5 Age 41-60 Minor surgery BMI > 25 kg/m2 Swollen legs Varicose veins or History of unexplained or recurrent spontaneous Oral contraceptives or hormone replacement Sepsis (< 1 month) Serious lung disease, including pneumonia (< 1 month) Abnormal pulmonary function Acute myocardial infarction Congestive heart failure (< 1 month) History of inflammatory bowel disease Medical patient at bed rest Age 61-74 Arthroscopic surgery Major open surgery (> 45 min) Laparoscopic surgery (> 45 min) Malignancy Confined to bed (> 72 hours) Immobilizing plaster cast Central venous access Age >= 75 History of VTE Family history of VTE Factor V Leiden Prothrombin [id number] Lupus anticoagulant Anticardiolipin antibodies Elevated serum homocysteine Heparin-induced thrombocytopenia Other congenital or acquired thrombophilia Stroke (< 1 month) Elective arthroplasty Hip, pelvis, or leg fracture Acute spinal cord injury (< 1 month) Prophylaxis Regimen Total Risk Factor Score Risk Level Prophylaxis Regimen 0-1 Low Early ambulation 2 Moderate Order ONE of the following: *Sequential Compression Device (SCD) *Heparin 5000 units SQ BID 3-4 Higher Order ONE of the following medications: *Heparin 5000 units SQ TID *Enoxaparin/Lovenox 40 mg SQ daily (WT < 150 kg, CrCl > 30 mL/min) *Enoxaparin/Lovenox 30 mg SQ daily (WT < 150 kg, CrCl > 10-29 mL/min) *Enoxaparin/Lovenox 30 mg SQ BID (WT < 150 kg, CrCl > 30 mL/min) AND/OR *Sequential Compression Device (SCD) 5 or more Highest Order ONE of the following medications: *Heparin 5000 units SQ TID (Preferred with Epidurals) *Enoxaparin/Lovenox 40 mg SQ daily (WT < 150 kg, CrCl > 30 mL/min) *Enoxaparin/Lovenox 30 mg SQ daily (WT < 150 kg, CrCl > 10-29 mL/min) *Enoxaparin/Lovenox 30 mg SQ BID (WT < 150 kg, CrCl > 30 mL/min) AND *Sequential Compression Device (SCD) Assessment and Plan Problem List: (1) Unstable angina ICD Codes: I20.0 - Unstable angina Status: Acute Plan: - Pt is a 76 y/o male with CAD s/p [facility] in 2014, HTN, Hyperlipidemia, cognitive impairment, and GERD who presented to the ED at [facility] on 06/20/17 with complaints of exertional chest pain and shortness of breath. - He took nitro prior to admission which resolved his chest pain, but he still felt short of breath. - His CE in the ED were negative and no new EKG changes. - Pt was seen by Dr. Walsh in the ED and taken for cardiac catheterization. His LHC on 06/20/17 revealed widely patent RCA and left circumflex coronary artery stents. - Pt was started on Imdur 60mg po daily. - His telemetry has not revealed any cardiac dysrhythmias. - Pt is not having any further CP or SOB - Cont. ASA, Plavix, metoprolol, Lipitor - Will discuss the case with Cardiology today to see if any further workup is necessary and if not we will plan for discharge later today - Supportive care - Pt will need followup with his PCP, Dr. Arcos, in 1 week and followup with Dr. Walsh in 2 weeks. (2) HTN (hypertension) ICD Codes: I10 - Essential (primary) hypertension Status: Chronic Plan: - Home meds continued - Stable (3) Hyperlipidemia ICD Codes: E78.5 - Hyperlipidemia, unspecified Status: Chronic Plan: - Home meds continued (4) CAD (coronary artery disease) ICD Codes: I25.10 - Atherosclerotic heart disease of [place] coronary artery without angina pectoris Plan: - See above Assessment and Plan Patient examined. Assessment and plan formulated with Kaylan Wade PA-C. I agree with the above. Pt was emergently taken from the ER to the Cardiac film laboratory technician (06/20) Case d/w Dr. Walsh prior to [facility] and then again afterwards. LHC did NOT show acute occlusion. Pt started on Imdur. Pt interviewed and examined 06/21/17. Pt denies any c/o chest pain or SOB. Pt instructed that he may resume his usual ADL and activities such as walking with his . However, I instructed him to strenuous activity or work outs at the gym until he is cleared by Dr. Walsh at his f/u appointment next week. Physician Certification 2 Midnight Certification Type: Admission for Inpatient Services Order for Inpatient Services The services are ordered in accordance with Medicare regulations or non- Medicare payer requirements, as applicable. In the case of services not specified as inpatient-only, they are appropriately provided as inpatient services in accordance with the 2-midnight benchmark. Estimated LOS (days): 2 2 days is the estimated time the patient will need to remain in the hospital, assuming treatment plan goals are met and no additional complications. Post-Hospital Plan: Home Kaylan Wade Jun 21, 2017 08:28 Charles Vick DO Jun 21, 2017 10:57
[2017-06-21] MEDS ORDERED: ISOS60TA PO (08:57)
[2017-06-21] MEDS ORDERED: ASPIRIN 81 MG CHEW TAB CHEW SCH (09:00)
[2017-06-21] MEDS ORDERED: METOPROLOL TARTRATE 25 MG TAB PO SCH (09:00)
[2017-06-21] MEDS ORDERED: CLOPIDOGREL 75 MG TAB PO SCH (09:00)
[2017-06-21] MEDS: SODIUM CHLORIDE 0.9% FLUSH 10 ML FLUSH IV FLUSH SCH (09:36)
--- NOTE | 2017-06-21 10:41 | HHI.DCPOC ---
Discharge Care Plan Diagnosis: (1) Unstable angina (2) HTN (hypertension) (3) Hyperlipidemia (4) CAD (coronary artery disease) (5) Chest pain Goals to Promote Your Health * To prevent worsening of your condition and complications * To maintain your health at the optimal level Directions to Meet Your Goals Take your medications as prescribed Follow your dietary instruction Follow activity as directed Keep your appointments as scheduled Take your immunizations and boosters as scheduled If your symptoms worsen call your PCP, if no PCP go to Urgent Care Center or Emergency Room Smoking is Dangerous to Your Health. Avoid second hand smoke Call the 24-hour hour crisis hotline for domestic abuse at Kaylan Wade Jun 21, 2017 10:41 Charles Vick DO Jun 21, 2017 10:53
[2017-06-21] MEDS ORDERED: ATORVASTATIN 40 MG TAB PO SCH (21:00)
--- NOTE | 2017-06-22 01:17 | EKG ---
Date Performed: 06/20/2017 Time Performed: 12:58:45 PTAGE: 76 years EKG: Sinus rhythm WITH FIRST DEGREE AV BLOCK WITH FREQUENT SUPRAVENTRICULAR PREMATURE COMPLEXES ABNORMAL ECG PREVIOUS TRACING : 03/05/2015 05.17 Compared to prior tracing, T wave changes no longer noted DOCTOR: Juan Muñiz Interpretating Date/Time 06/22/2017 01:15:52
== END 2017-06-21 12:00 | disposition home or self-care (01) | DRG 287 ==
LOC: NEPC 12:43 → NEDA 14:51 → HCIS 20:40 → HCIN 06-21 07:58
PROVIDERS: ADMIT Hospitalist; ATTEND Hospitalist
PROC: B2111ZZ Fluoroscopy of Multiple Coronary Arteries using Low Osmolar Contrast (ICD-10-PCS; principal; 2017-06-20 15:00)
DX: I25.110 Atherosclerotic heart disease of native coronary artery with unstable angina pectoris (principal); N18.3 Chronic kidney disease, stage 3 (moderate); K31.84 Gastroparesis; I12.9 Hypertensive chronic kidney disease with stage 1 through stage 4 chronic kidney disease, or unspecified chronic kidney disease; K21.9 Gastro-esophageal reflux disease without esophagitis; N40.0 Benign prostatic hyperplasia without lower urinary tract symptoms; I25.2 Old myocardial infarction; E78.5 Hyperlipidemia, unspecified; R41.89 Other symptoms and signs involving cognitive functions and awareness; M19.90 Unspecified osteoarthritis, unspecified site; Z85.820 Personal history of malignant melanoma of skin; Z87.891 Personal history of nicotine dependence; Z95.5 Presence of coronary angioplasty implant and graft; Z98.1 Arthrodesis status
CPT/HCPCS: 71045; 80053; 82550; 83880; 84484; 85025; 85610; 85730; 93005; 93454; 99152; C1769; C1893; J1644; J2250; J3010; Q9967

== ENCOUNTER → 2017-07-29 | Outpatient (CLI) | payer MEDICARE ==
[~2017-07-29] MED LIST changes: -ACYC800T PO; -BETH25TA2 PO; +CHOL100025 CHEW; +IPRA0.06 EACH NARE; +ISOS60TA PO; +MEMA1TAB2 PO; -PIRO20CA PO; +VITA500T83 PO; +ZINC50TA2 PO
== END ==
LOC: HRSP 09:59
PROVIDERS: ATTEND Internal Medicine Pulmonary Disease
DX: R06.02 Shortness of breath (principal)
CPT/HCPCS: 36600; 82805; 94060; 94618; 94726; 94729